=== PATIENT | female | born 1995 | race Caucasian/White ===

== ENCOUNTER 2018-08-07 16:20 | Emergency (ER) | payer OTHER, MEDICAID ==
[~2018-08-07] VITALS: Ht 165.1 cm; Wt 113.4 kg
[~2018-08-07 16:20] MED LIST: AMANTADINE 100100 MG PO; BACTRIM DS TAB1 EACH PO; BENADRYL25 MG PO; BUSPAR; CEFDINIR300 MG PO; CYCLOBENZAPRINE5 MG PO; DESYREL150 MG; FLEXERIL; GEODON80 MG PO; IBUPROFEN 600600 M1 PO; IRON PO; NAPROXEN DELAY500 M1; NORCO 5-325 TA1 EACH PO; OXCARBAZEPINE300 M1 PO; TRILEPTAL150 MG; VISTARIL50 MG PO; ZOFRAN ODT4 MG PO; ZOLOFT 50 MG TA50 M1 PO
[2018-08-07 16:51] LABS: URINE BILIRUBIN NEGATIVE (Negative); URINE BLOOD NEGATIVE (Negative); URINE CLARITY CLEAR; URINE COLOR YELLOW; URINE GLUCOSE-RANDOM NEGATIVE (Negative); URINE KETONES NEGATIVE (Negative); URINE LEUKOCYTES-REFLEX NEGATIVE (Negative); URINE NITRITE-REFLEX NEGATIVE (Negative); URINE PROTEIN NEGATIVE (Negative); URINE UROBILINOGEN 0.2 E.U./dl (0.2-1.0)
[2018-08-07 17:04] LABS: ABSOLUTE BASOPHILS 0.1 thou/uL (0.0-0.2); ABSOLUTE EOSINOPHILS 0.1 thou/uL (0.0-0.7); ABSOLUTE MONOCYTES 1.1 thou/uL (0.0-1.2); ABSOLUTE NEUTROPHILS 11.9 thou/uL (1.6-8.1); BASOPHILS 0.4 %; EOSINOPHILS 0.3 %; HEMATOCRIT 40.4 % (37.0-47.0); HEMOGLOBIN 13.8 gm/dL (12.0-15.0); LYMPHOCYTES 13.3 %; MCH 29.1 pg (26.0-34.0); MCHC 34.1 g/dL (28.0-37.0); MCV 85.3 fL (80.0-100.0); MONOCYTES 7.5 %; MPV 9.6 fl. (7.2-11.1); NUCLEATED RBCS 0 /100WBC; PLATELET COUNT* 313 thou/uL (150-400); POLYS 78.5 %; RBC 4.73 mil/uL (4.20-5.00); WBC 15.2 thou/uL (4.0-11.0)
[2018-08-07 17:18] LABS: ALBUMIN 3.6 g/dL (3.4-5.0); CALCIUM 8.6 mg/dL (8.5-10.1); CREATININE 0.9 mg/dL (0.6-1.3); POTASSIUM 3.7 mmol/L (3.5-5.1); TOTAL BILIRUBIN 0.4 mg/dL (<0.1-1.0)
[2018-08-07] MEDS ORDERED: CITRATE OF MAG296 ML PO (19:38)
[2018-08-07] MEDS ORDERED: NAPROSYN500 MG PO (19:38)
[2018-08-07] MEDS ORDERED: MIRALAX17 GM PO (19:38)
[2018-08-07 20:01] VITALS: BP 135/87
== END 2018-08-07 20:03 | disposition home or self-care (01) ==
LOC: M.ERS 16:20
PROVIDERS: Physician Assistant
DX: O26.891 Other specified pregnancy related conditions, first trimester (principal); K59.00 Constipation, unspecified; O99.341 Other mental disorders complicating pregnancy, first trimester; M41.9 Scoliosis, unspecified; Z3A.01 Less than 8 weeks gestation of pregnancy; Z88.1 Allergy status to other antibiotic agents; Z88.0 Allergy status to penicillin; Z88.5 Allergy status to narcotic agent; Z88.8 Allergy status to other drugs, medicaments and biological substances

== ENCOUNTER 2020-09-24 00:02 | Emergency (ER) | payer OTHER, MEDICAID ==
[~2020-09-24] VITALS: Ht 165.1 cm; Wt 152.9 kg
[~2020-09-24 00:02] MED LIST changes: +CITRATE OF MAG296 ML PO; +DEXAMETHASONE1 MG PO; +DOXYCYCLINE 10100 MG PO; +MIRALAX17 GM PO; +NAPROSYN500 MG PO; +PROAIR HFA8.5 GM INH; +PROTONIX40 M2 PO
[2020-09-24] MEDS ORDERED: PERCOCET 5-3251 EACH PO (00:07)
[2020-09-24 00:45] LABS: ABSOLUTE BASOPHILS 0.1 thou/uL (0.0-0.2); ABSOLUTE LYMPHOCYTES 2.1 thou/uL (0.8-5.3); ABSOLUTE MONOCYTES 0.9 thou/uL (0.0-1.2); BASOPHILS 0.7 %; EOSINOPHILS 0.1 %; HEMATOCRIT 39.8 % (37.0-47.0); HEMOGLOBIN 13.1 gm/dL (12.0-15.0); LYMPHOCYTES 18.9 %; MCH 26.6 pg (26.0-34.0); MCHC 32.8 g/dL (28.0-37.0); MCV 81.1 fL (80.0-100.0); MONOCYTES 8.4 %; MPV 8.3 fl. (7.2-11.1); NUCLEATED RBCS 0 /100WBC; PLATELET COUNT* 558 thou/uL (150-400); POLYS 71.9 %; RBC 4.91 mil/uL (4.20-5.00); RDW-CV 16.4 % (10.5-14.5); WBC 11.1 thou/uL (4.0-11.0)
[2020-09-24 00:53] LABS: CALCIUM 8.7 mg/dL (8.5-10.1); POTASSIUM 3.9 mmol/L (3.5-5.1)
[2020-09-24 00:57] LABS: ALBUMIN 3.4 g/dL (3.4-5.0); TOTAL BILIRUBIN 0.2 mg/dL (<0.1-1.0); TOTAL PROTEIN 7.2 g/dL (6.4-8.2)
[2020-09-24 01:38] LABS: URINE BILIRUBIN NEGATIVE (Negative); URINE BLOOD TRACE (Negative); URINE CLARITY CLEAR; URINE COLOR YELLOW; URINE GLUCOSE-RANDOM NEGATIVE (Negative); URINE KETONES NEGATIVE (Negative); URINE LEUKOCYTES-REFLEX NEGATIVE (Negative); URINE NITRITE-REFLEX NEGATIVE (Negative); URINE PROTEIN NEGATIVE (Negative); URINE SPECIFIC GRAVITY >= 1.030 (1.005-1.030); URINE UROBILINOGEN 0.2 E.U./dl (0.2-1.0)
[2020-09-24 04:20] VITALS: BP 130/74
== END 2020-09-24 04:20 | disposition home or self-care (01) ==
LOC: M.ERS 00:02
PROVIDERS: Personal Emergency Response Attendant
DX: N99.840 Postprocedural hematoma of a genitourinary system organ or structure following a genitourinary system procedure (principal); Z71.1 Person with feared health complaint in whom no diagnosis is made; Z98.890 Other specified postprocedural states; Z79.899 Other long term (current) drug therapy

== ENCOUNTER 2021-01-29 09:17 | Emergency (ER) | payer OTHER, MEDICAID ==
[~2021-01-29] VITALS: Ht 165.1 cm; Wt 172.4 kg
[~2021-01-29 09:17] MED LIST changes: +PERCOCET 5-3251 EACH PO
[2021-01-29] MEDS ORDERED: METFORMIN HCL500 M3 PO (10:10)
[2021-01-29 10:59] LABS: ABSOLUTE BASOPHILS 0.1 thou/uL (0.0-0.2); ABSOLUTE EOSINOPHILS 0.1 thou/uL (0.0-0.7); ABSOLUTE LYMPHOCYTES 2.6 thou/uL (0.8-5.3); ABSOLUTE MONOCYTES 0.7 thou/uL (0.0-1.2); ABSOLUTE NEUTROPHILS 5.8 thou/uL (1.6-8.1); BASOPHILS 0.9 %; EOSINOPHILS 1.6 %; HEMATOCRIT 37.4 % (37.0-47.0); HEMOGLOBIN 12.5 gm/dL (12.0-15.0); LYMPHOCYTES 27.9 %; MCH 26.9 pg (26.0-34.0); MCHC 33.4 g/dL (28.0-37.0); MCV 80.5 fL (80.0-100.0); MONOCYTES 7.8 %; MPV 8.9 fl. (7.2-11.1); NUCLEATED RBCS 0 /100WBC; PLATELET COUNT* 326 thou/uL (150-400); POLYS 61.8 %; RBC 4.65 mil/uL (4.20-5.00); RDW-CV 14.9 % (10.5-14.5); WBC 9.4 thou/uL (4.0-11.0)
[2021-01-29 11:08] LABS: URINE BILIRUBIN NEGATIVE (Negative); URINE BLOOD NEGATIVE (Negative); URINE CLARITY CLEAR; URINE COLOR YELLOW; URINE GLUCOSE-RANDOM NEGATIVE (Negative); URINE KETONES NEGATIVE (Negative); URINE LEUKOCYTES-REFLEX NEGATIVE (Negative); URINE NITRITE-REFLEX NEGATIVE (Negative); URINE PROTEIN NEGATIVE (Negative); URINE UROBILINOGEN 0.2 E.U./dl (0.2-1.0)
[2021-01-29 11:15] LABS: CALCIUM 8.2 mg/dL (8.5-10.1); CREATININE 0.7 mg/dL (0.6-1.3)
[2021-01-29 11:19] LABS: ALBUMIN 3.2 g/dL (3.4-5.0); TOTAL BILIRUBIN 0.2 mg/dL (<0.1-1.0)
[2021-01-29] MEDS ORDERED: ZOFRAN ODT4 MG PO (13:43)
[2021-01-29 14:02] VITALS: BP 151/91
== END 2021-01-29 14:03 | disposition home or self-care (01) ==
LOC: M.ERS 09:17
PROVIDERS: Physician Assistant
DX: R10.32 Left lower quadrant pain (principal); R11.2 Nausea with vomiting, unspecified; Z88.1 Allergy status to other antibiotic agents; Z88.5 Allergy status to narcotic agent; Z88.0 Allergy status to penicillin; Z98.890 Other specified postprocedural states

== ENCOUNTER 2021-05-10 14:16 | Emergency (ER) | payer OTHER, MEDICAID ==
[~2021-05-10] VITALS: Ht 162.6 cm; Wt 145.2 kg
[~2021-05-10 14:16] MED LIST changes: +METFORMIN HCL500 M3 PO
[2021-05-10] MEDS ORDERED: ZOLOFT100 MG PO (14:21)
[2021-05-10] MEDS ORDERED: FLEXERIL PO (16:20)
[2021-05-10 16:31] VITALS: BP 141/70
== END 2021-05-10 16:32 | disposition home or self-care (01) ==
LOC: M.ERS 14:16
DX: M25.531 Pain in right wrist (principal); Z79.899 Other long term (current) drug therapy; Z88.1 Allergy status to other antibiotic agents; Z88.0 Allergy status to penicillin; Z88.8 Allergy status to other drugs, medicaments and biological substances